=== PATIENT | male | born 2000 | race Two or more races ===

== ENCOUNTER 2021-06-06 20:13 | Emergency (ER) | payer MEDICAID ==
--- NOTE | 2021-06-06 21:22 | EDM.PDOC ---
ED HPI GENERAL MEDICAL PROBLEM - General Chief Complaint: General Stated Complaint: MEDICAL CLEARANCE Time Seen by Provider: 06/06/21 21:06 Source of Information: Reports: Patient History Limitations: Reports: No Limitations - History of Present Illness INITIAL COMMENTS - FREE TEXT/NARRATIVE: HISTORY AND PHYSICAL: History of present illness: Patient is a 21-year-old male who is brought to the emergency room by law enforcement for medical clearance. Patient is in custody with law enforcement for "minor in possession". He states he did have a few alcoholic beverages although has no current complaints or concerns. Patient denies any fever, chills, headache, change in vision, syncope or near syncope. Denies any chest pain, back pain, shortness of breath or cough. Denies any GI or symptoms. Patient has been eating and drinking appropriately. Review of systems: As per history of present illness and below otherwise all systems reviewed and negative. Past medical history: As per history of present illness and as reviewed below otherwise noncontributory. Surgical history: As per history of present illness and as reviewed below otherwise noncontributory. Social history: See social history for further information Family history: As per history of present illness and as reviewed below otherwise noncontributory. Physical exam: General: Well developed and well nourished. Alert and orientated x 3. Answering questions appropriately. Nontoxic in appearance and in no acute distress. Vital signs are stable and have been reviewed by me. Nursing notes were reviewed. Accompanied by law enforcement. HEENT: Atraumatic, normocephalic, pupils equal and reactive bilaterally, negative for conjunctival pallor or scleral icterus, mucous membranes moist, trachea midline. No drooling or trismus noted. No meningeal signs. No hot potato voice noted. Lungs: Clear to auscultation, breath sounds equal bilaterally. Normal work of breathing, no accessory muscles used. Heart: S1S2, regular rate and rhythm without overt murmur Abdomen: Soft, nondistended, nontender. Negative for masses or costovertebral tenderness. Skin: Intact, warm, dry. No lesions or rashes noted. Hematologic: No petechiae or purpra. Mucosa appropriate color and normal nail bed color and refill. Extremities: Ambulatory, moves all extremities per self without difficulty or deficits. Neurovascular unremarkable. Neuro: Awake, alert, oriented. Cranial nerves II through XII unremarkable. Cerebellum unremarkable. Motor and sensory unremarkable throughout. Exam nonfocal. Psychiatric: Mood and affect are appropriate. Normal thought process. Answering questions appropriately. Notes: Patient is alert, oriented and answering questions appropriately. Vital signs are stable. Blood sugar is within normal limits. Law enforcement has no specific concerns for today's ER visit. 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 Reassessment at the time of disposition demonstrates that the patient is in no acute distress. The patient is stable for discharge, counseling was provided and we discussed in great detail signs and symptoms that would prompt them to return to the Emergency Department. Medication, follow up and supportive care measures were reviewed and discussed. Voices understanding and is agreeable to plan of care. Denies any further questions or concerns at this time. Diagnostics: Blood glucose Therapeutics: None Prescription: None Impression: Encounter for medical screening Plan: 1. Today your physical exam and vital signs are within normal limits. 2. We encourage you to follow up with your primary care provider and/or recommended specialist in the next few days for re-evaluation and further care/management. 3. If you should develop symptoms or feel the need to be evaluated in the emergency department - please feel free to return or call 911 if necessary. Definitive disposition and diagnosis as appropriate pending reevaluation and review of above. - Related Data Allergies Allergy/AdvReac Type Severity Reaction Status Date / Time No Known Allergies Allergy Verified 06/06/21 21:13 Past Medical History - Past Health History Medical/Surgical History: Denies Medical/Surgical History - Infectious Disease History Infectious Disease History: Reports: Chicken Pox Social & Family History - Family History Family Medical History: No Pertinent Family History - Tobacco Use Tobacco Use Status *Q: Never Tobacco User - Caffeine Use Caffeine Use: Reports: None - Recreational Drug Use Recreational Drug Use: No ED ROS GENERAL - Review of Systems Review Of Systems: Comprehensive ROS is negative, except as noted in HPI. ED EXAM, GENERAL - Physical Exam Exam: See Below (See dictation) Course - Vital Signs Last Recorded V/S: Last Vital Signs Temp 97.4 F 06/06/21 21:13 Pulse 97 06/06/21 21:13 Resp 17 06/06/21 21:13 BP 99/63 06/06/21 21:13 Pulse Ox 96 06/06/21 21:13 Departure - Departure Time of Disposition: 21:22 Disposition: Home, Self-Care 01 Clinical Impression: Medical clearance for incarceration - Discharge Information Instructions: Medical Screening Exam Referrals: PCP,None [Primary Care Provider] - Additional Instructions: The following information is given to patients seen in the emergency department who are being discharged to home. This information is to outline your options for follow-up care. We provide all patients seen in our emergency department with a follow-up referral. The need for follow-up, as well as the timing and circumstances, are variable depending upon the specifics of your emergency department visit. If you don't have a primary care physician on staff, we will provide you with a referral. We always advise you to contact your personal physician following an emergency department visit to inform them of the circumstance of the visit and for follow-up with them and/or the need for any referrals to a consulting specialist. The emergency department will also refer you to a specialist when appropriate. This referral assures that you have the opportunity for follow-up care with a specialist. All of these measure are taken in an effort to provide you with optimal care, which includes your follow-up. Under all circumstances we always encourage you to contact your private physician who remains a resource for coordinating your care. When calling for follow-up care, please make the office aware that this follow-up is from your recent emergency room visit. If for any reason you are refused follow-up, please contact the [facility] Emergency Department at and asked to speak to the emergency department charge nurse. [facility] [address] [place] [address] [id number] [address] Thank you for choosing the [facility] emergency department in [place] for your medical needs today. It was a pleasure caring for you. Today you were seen in the emergency department for medical clearance. 1. Today your physical exam and vital signs are within normal limits. 2. We encourage you to follow up with your primary care provider and/or recommen ded specialist in the next few days for re-evaluation and further care/management. 3. If you should develop symptoms or feel the need to be evaluated in the emergency department - please feel free to return or call 911 if necessary. Sepsis Event Note (ED) - Evaluation Sepsis Screening Result: No Definite Risk - Focused Exam Vital Signs: Vital Signs Temp Pulse Resp BP Pulse Ox 06/06/21 21:13 97.4 F 97 17 99/63 96
== END 2021-06-06 21:30 | disposition home or self-care (01) ==
LOC: MW.ED 20:13
DX: Z02.89 Encounter for other administrative examinations (principal)
CPT/HCPCS: 82947; 99283

== ENCOUNTER 2021-06-17 16:11 | Emergency (ER) | payer OTHER, MEDICAID ==
[2021-06-17] MEDS ORDERED: Diphtheria,Pertussis(Acell),Tetanus Vaccine 0.5 ML Syringe IM ONE (17:06)
--- NOTE | 2021-06-17 17:44 | EDM.PDOC ---
ED HPI GENERAL MEDICAL PROBLEM - General Chief Complaint: Back Pain or Injury Stated Complaint: FELL OFF ROOF Time Seen by Provider: 06/17/21 17:10 Source of Information: Reports: Patient History Limitations: Reports: No Limitations - History of Present Illness INITIAL COMMENTS - FREE TEXT/NARRATIVE: 21-year-old male no relevant past medical history presents for fall injury. Mayo maciel was working on a roof when a large piece of metal flew over and knocked him and his coworker off of the roof and onto the ground. He estimates that he fell approximately 9 feet. He landed on his left side and notes pain in his left hip and left thigh. He also injured his right wrist. After falling a nail gun fell and hit him on the top of the head. He did not lose consciousness. He did not note any bleeding or open wounds. He has been ambulatory after the fall. left hip, right wrist, top of head Pain Score (Numeric/FACES): 5 - Related Data Allergies Allergy/AdvReac Type Severity Reaction Status Date / Time No Known Allergies Allergy Verified 06/17/21 16:58 Home Meds: Home Meds Acetaminophen/oxyCODONE [Percocet 325-5 MG] 1 each PO Q4H PRN #18 tab 06/17/21 [Rx] Ibuprofen [Motrin] 600 mg PO Q6H PRN #20 tab 06/17/21 [Rx] Past Medical History - Past Health History Medical/Surgical History: Denies Medical/Surgical History HEENT History: Reports: None Cardiovascular History: Reports: None Respiratory History: Reports: None Gastrointestinal History: Reports: None Genitourinary History: Reports: None Musculoskeletal History: Reports: None Neurological History: Reports: None Psychiatric History: Reports: None Endocrine/Metabolic History: Reports: None Hematologic History: Reports: None Immunologic History: Reports: None Oncologic (Cancer) History: Reports: None Dermatologic History: Reports: None - Infectious Disease History Infectious Disease History: Reports: Chicken Pox - Past Surgical History Head Surgeries/Procedures: Reports: None Social & Family History - Family History Family Medical History: No Pertinent Family History - Tobacco Use Tobacco Use Status *Q: Current Every Day Tobacco User Years of Tobacco use: 5 Packs/Tins Daily: 0.5 - Caffeine Use Caffeine Use: Reports: None - Recreational Drug Use Recreational Drug Use: No ED ROS GENERAL - Review of Systems Review Of Systems: Comprehensive ROS is negative, except as noted in HPI. ED EXAM, GENERAL - Physical Exam Exam: See Below Exam Limited By: No Limitations General Appearance: Alert, WD/WN, No Apparent Distress Eye Exam: Bilateral Eye: EOMI, PERRL Ears: Normal External Exam, Hearing Grossly Normal Nose: Normal Inspection Throat/Mouth: Normal Voice, No Airway Compromise Head: Atraumatic, Normocephalic Neck: Normal Inspection, Supple, Non-Tender Respiratory/Chest: No Respiratory Distress, Lungs Clear, Normal Breath Sounds, No Accessory Muscle Use Cardiovascular: Normal Peripheral Pulses, Regular Rate, Rhythm GI/Abdominal: Soft, Non-Tender Back Exam: Normal Inspection. No: Vertebral Tenderness Extremities: Other (TTP of R distal forearm without deformity; TTP of left pelvis/hip without deformity) Neurological: Alert, Normal Cognition, Normal Gait Psychiatric: Normal Affect, Normal Mood Skin Exam: Warm, Dry, Intact, Normal Color Course - Vital Signs Last Recorded V/S: Last Vital Signs Temp 97.0 F 06/17/21 16:54 Pulse 92 06/17/21 16:54 Resp 18 06/17/21 16:54 BP 127/84 06/17/21 16:54 Pulse Ox 98 06/17/21 16:54 - Orders/Labs/Meds Orders: Active Orders 24 hr Category Date Time Status Communication Order [RC] STAT Care 06/17/21 17:05 Active Vaccines to be Administered [RC] PER UNIT ROUTINE Care 06/17/21 17:06 Active Meds: Medications Discontinued Medications Generic Name Dose Route Start Last Admin Trade Name Freq PRN Reason Stop Dose Admin Diphtheria/Tetanus/Acell Pertussis 0.5 ml 06/17/21 17:06 Diphtheria,Pertussis(Acell),Tetanus Vaccine 0.5 Ml Syringe IM 06/17/21 17:07 .ONCE ONE Ibuprofen 600 mg 06/17/21 17:48 Ibuprofen 600 Mg Tab PO 06/17/21 17:49 ONETIME ONE Oxycodone/Acetaminophen 1 tab 06/17/21 17:48 Acetaminophen/Oxycodone 325-5 Mg Tab PO 06/17/21 17:49 ONETIME ONE - Re-Assessments/Exams Free Text/Narrative Re-Assessment/Exam: 06/17/21 17:50 X-ray imaging head CT has been ordered. Will follow up results. Will give Motrin and Percocet for pain. 06/17/21 18:18 Imaging is unremarkable; will d/c with short course of analgesia and f/u [facility]. Departure - Departure Time of Disposition: 18:21 Disposition: Home, Self-Care 01 Condition: Good Clinical Impression: Fall Qualifiers: Encounter type: initial encounter Qualified Code(s): W19.XXXA - Unspecified fall, initial encounter - Discharge Information Prescriptions: Ibuprofen [Motrin] 600 mg PO Q6H PRN #20 tab PRN Reason: Pain Acetaminophen/oxyCODONE [Percocet 325-5 MG] 1 each PO Q4H PRN #18 tab PRN Reason: Pain Instructions: Contusion, [id number] Referrals: PCP,None [Primary Care Provider] - Forms: ED Department Discharge Additional Instructions: Your imaging does not reveal any evidence of fracture or dislocation. You will likely have pain for the next several days due to contusion injury to the muscles. I have prescribed pain medication to your pharmacy. The best way to protect yourself and others from COVID-19 is to take one of the three safe and effective vaccines that have been proven to substantially reduce risk of both infection and severe illness. [facility] is currently offering COVID vaccinations for anyone age 18 and older. To schedule an appointment call [phone]. Or, to be contacted by our clinics about scheduling your vaccine online, please go to [email or web address] The following information is given to patients seen in the emergency department who are being discharged to home. This information is to outline your options for follow-up care. We provide all patients seen in our emergency department with a follow-up referral. The need for follow-up, as well as the timing and circumstances, are variable depending upon the specifics of your emergency department visit. If you don't have a primary care physician on staff, we will provide you with a referral. We always advise you to contact your personal physician following an emergency department visit to inform them of the circumstance of the visit and for follow-up with them and/or the need for any referrals to a consulting specialist. The emergency department will also refer you to a specialist when appropriate. This referral assures that you have the opportunity for follow-up care with a specialist. All of these measure are taken in an effort to provide you with optimal care, which includes your follow-up. Under all circumstances we always encourage you to contact your private physician who remains a resource for coordinating your care. When calling for follow-up care, please make the office aware that this follow-up is from your recent emergency room visit. If for any reason you are refused follow-up, please contact the [facility] Emergency Department at and asked to speak to the emergency department charge nurse. Please follow up with your primary care physician. If you do not have a primary care physician, see below: [facility] [address] [place] [id number] [facility] [address] [place] [address] Sepsis Event Note (ED) - Evaluation Sepsis Screening Result: No Definite Risk - Focused Exam Vital Signs: Vital Signs Temp Pulse Resp BP Pulse Ox 06/17/21 16:54 97.0 F 92 18 127/84 98
[2021-06-17] MEDS ORDERED: Ibuprofen 600 MG Tab PO ONE (17:48)
[2021-06-17] MEDS ORDERED: Acetaminophen/oxyCODONE 325-5 MG Tab PO ONE (17:48)
--- NOTE | 2021-06-17 17:58 | CT ---
INDICATION: Fall. TECHNIQUE: Noncontrast CT images were acquired through the brain. COMPARISON: None. FINDINGS: The ventricles and sulci are within normal limits for patient age. No mass effect or midline shift. The horton-white differentiation is maintained. No acute intracranial hemorrhage or pathologic extra-axial fluid collection. The globes are symmetric. The calvarium is intact. Mild mucosal thickening within the maxillary sinuses. The mastoid air cells are clear. IMPRESSION: No acute intracranial hemorrhage or mass effect. Please note that all CT scans at this facility use dose modulation, iterative reconstruction, and/or weight-based dosing when appropriate to reduce radiation dose to as low as reasonably achievable. Dictated by Shreyas Gallardo MD @ 06/17/2021 5:56:[address] Shreyas Gallardo @ Jun 17 2021 5:56PM
--- NOTE | 2021-06-17 18:14 | CR ---
INDICATION: The left ribs from 9 feet TECHNIQUE: Single view pelvis with AP and Frogleg views left hip COMPARISONS: None available. FINDINGS: Femoral heads are well-seated in the acetabula. There is no displaced fracture, dislocation or acute osseous abnormality. There is no significant degenerative change. The soft tissues are unremarkable. IMPRESSION: No acute osseous abnormality. Dictated by Joseph Huang MD @ 06/17/2021 6:13:[address] Joseph Huang @ Jun 17 2021 6:13PM
--- NOTE | 2021-06-17 18:16 | CR ---
Indication: Fell off roof from 9 feet Comparison: None available. Technique: AP, Lateral, and Oblique views right wrist were obtained Findings: There is no displaced fracture or dislocation. There is degenerative change of the radiocarpal joint. There is mild soft tissue prominence. Impression: No evidence of definite displaced fracture with trace superficial soft tissue prominence. Dictated by Joseph Huang MD @ 06/17/2021 6:14:[address] Joseph Huang @ Jun 17 2021 6:14PM
== END 2021-06-17 18:52 | disposition home or self-care (01) ==
LOC: MW.ED 16:11
DX: S69.91XA Unspecified injury of right wrist, hand and finger(s), initial encounter (principal); M25.552 Pain in left hip; M79.652 Pain in left thigh; Z72.0 Tobacco use; Z23 Encounter for immunization; W17.89XA Other fall from one level to another, initial encounter
CPT/HCPCS: 70450; 73110; 73502; 90471; 90715; 99284; A9270